=== PATIENT | male | born 1980 | race Caucasian/White ===

== ENCOUNTER 2019-05-09 01:21 | Emergency (ER) | payer SELFPAY ==
[2019-05-09 01:22] VITALS: BP 141/92; PULSE 88; RESP 18; TEMP 36.5; O2SAT 98; BMI 20.5
--- NOTE | 2019-05-09 01:39 | ED.VIS.URI ---
History of Present Illness Chief Complaint: Sore Throat Informant: Patient Onset: Days - 7 Context: Gradual Onset Timing: Continuous Worsened by: Swallowing Associated Symptoms: Nasal Congestion, Headache, Nausea Narrative: Patient is a 39-year-old male with no significant past medical history presenting with a sore throat. He states he feels of the lymph nodes in his throat are very sore and it hurts to swallow. He notes a week ago he had a flulike illness with fever and chills. He states after 3 days the fever and lightheadedness and improved however he is continued to have his throat symptoms. He is also had intermittent ringing in his ears. Patient is especially concerned because he has to drive his mother up to [place] tomorrow for an appointment. He states he is having a hard time swallowing because of the pain and it even hurts to swallow his own spit. He denies any other symptoms or complaints at this time. Past Medical History - Allergies and Home Meds Allergies/Adverse Reactions: Allergies No Known Allergies Allergy (Verified 05/09/19 01:24) Primary Care Physician: Shekhar Smith DO [Primary Care Provider] - Past Medical History: None Surgical History: noncontributory Smoking Status: Current every day smoker Review of Systems General: Reports: Chills, Fever, Malaise. Denies: Sweats Eyes: Denies: Visual changes - bilaterally, Diplopia ENT: Reports: Sore throat, - - Bilateral ear ringing. Denies: Rhinorrhea Cardiovascular: Denies: Chest pain, Palpitations Respiratory: Denies: Dyspnea, Cough, Dyspnea on exertion Gastrointestinal: Reports: Nausea. Denies: Abdominal pain, Vomiting, Diarrhea, Melena, Hematochezia Genitourinary: Denies: Dysuria, Hematuria, Frequency Musculoskeletal: Denies: Back pain, Extremity Pain Skin: Denies: Rash, Wounds Neurological: Denies: Headache, Weakness, Numbness Physical Exam Vital Signs/Narrative: Vital Signs Temp Pulse Resp BP Pulse Ox 05/09/19 01:22 97.7 F L 88 18 141/92 H 98 Inital Vital Signs reviewed: Yes General: Well nourished, Well developed Head: Normocephalic, Atraumatic Eyes: Perrl, EOMI Ears: Normal external canal, TM's clear Nose: Normal Inspection, No Rhinorrhea. Negative for: Swollen Turbinates Mouth/Throat: Posterior Oropharyngeal Erythema Tonsils: Right Tonsilar Erythema, Left Tonsilar Erythema. Negative for: Right Tonsilar Exudates, Left Tonsilar Exudates, Right Tonsilar Swelling, Left Tonsilar Swelling Neck: Supple, No Meningismus, Anterior Lymphadenopathy Cardiovascular: Regular rate, Regular rhythm, No murmurs Respiratory: No distress, CTA bilaterally, Chest nontender Abdomen: Soft, Nontender, Nondistended, Normal bowel sounds Back: Nontender, Normal Inspection Extremities: Nontender, No edema Skin: Normal color, No rash Neurological: Alert, Oriented x3, Cranial nerves II-XII grossly intact, Normal Strength, Normal Sensation Psychological: Normal affect Diagnostic/Tx/Re-eval - Medical Decision Making Patient is evaluated sore throat. Likely is a viral pharyngitis. He appears nontoxic in no acute distress. His vital signs are normal. He is given a one-time dose of Decadron to help with his symptoms. After 24 hours he will resume taking ibuprofen for pain. He is counseled on the typical course of viral URI. Patient is counseled on signs and symptoms requiring return to the emergency room. Patient verbalizes agreement and understand this plan. Patient discharged home in stable and improved condition. ED Disposition - Plan for ED Patient: Disposition: Home or Assisted Living Diagnosis: Viral syndrome, Pharyngitis Instructions: PHARYNGITIS, Viral Referrals: Shekhar Smith DO [Primary Care Provider] - Additional Instructions: Your lymph nodes in your neck are likely swollen from a viral illness. They need time to go down. They should improve within 2 to 3 weeks. The steroid you are given today should help with your symptoms. Please follow-up with a primary care doctor as needed. Return emergency room with any worsening symptoms.
[2019-05-09] MEDS: dexAMETHasone 4 MG Tablet 10 MG PO (01:57)
== END 2019-05-09 02:02 | disposition home or self-care (01) ==
LOC: ED 02:02
PROVIDERS: Emergency Provider Emergency Medicine; PCP Family Medicine
DX: J02.8 Acute pharyngitis due to other specified organisms (principal); F17.200 Nicotine dependence, unspecified, uncomplicated
CPT/HCPCS: 99283

== ENCOUNTER → 2020-01-26 17:35 | Outpatient (CLI) | payer MEDICAID, SELFPAY | PROVIDERS: PCP Family Medicine; Referring Provider Family Medicine; Visit Provider Family Medicine | DX: J02.9 Acute pharyngitis, unspecified (principal) | CPT/HCPCS: 87635; C9803; U0003 ==

== ENCOUNTER 2021-08-26 18:56 | Emergency (ER) | payer MEDICAID, SELFPAY ==
[2021-08-26 18:57] VITALS: BP 115/95; PULSE 64; RESP 18; TEMP 36.4; O2SAT 100
--- NOTE | 2021-08-26 19:22 | CT_ITS ---
EXAM: CT ABDOMEN AND PELVIS WITHOUT INTRAVENOUS CONTRAST CLINICAL INDICATION: Pain TECHNIQUE: Helically acquired images were obtained of the abdomen and pelvis without intravenous contrast. This CT exam was performed using one or more of the following dose reduction techniques: automated exposure control, adjustment of the mA and/or kV according to patient size, and/or use of iterative reconstruction technique. This report was created using [employer] report generation technology. RADIATION DOSE: CTDIvol = 6.04 mGy, DLP = 361.13 mGy-cm COMPARISON: None. FINDINGS: LOWER THORAX: Unremarkable. Lung bases are clear. No cardiomegaly. No significant pericardial effusion. ABDOMEN: LIVER: Unremarkable. Homogeneous. GALLBLADDER AND BILE DUCTS: Unremarkable. No calcified gallstones. No gallbladder distention or wall edema. No intra- or extrahepatic biliary ductal dilation. PANCREAS: Unremarkable. No focal cystic mass. SPLEEN: Unremarkable. Normal size without focal cystic or solid mass. ADRENALS: Unremarkable. No nodules. KIDNEYS AND URETERS: Punctate 2 mm distal right ureteral calculus on image 148 series 2. Mild right hydronephrosis. Mild right perinephric stranding. Punctate bilateral renal calculi are identified with cortical scarring the inferior right kidney. The right collecting system appears be partially duplicated. STOMACH AND BOWEL: Unremarkable. No stomach or bowel distention. No focal inflammatory change. PELVIS: APPENDIX: No evidence of acute appendicitis. BLADDER: Unremarkable. REPRODUCTIVE: Unremarkable as visualized. No mass. ABDOMEN and PELVIS: INTRAPERITONEAL SPACE: Unremarkable. No ascites or other fluid collection. No free air. BONES/JOINTS: Unremarkable. No suspicious lytic or blastic abnormality. SOFT TISSUES: Unremarkable. No discrete abdominal or pelvic wall hernia. VASCULATURE: Unremarkable. Abdominal aorta is non-dilated. LYMPH NODES: Unremarkable. No enlarged lymph nodes. CT/Abdomen/Pelvis without Cont IMPRESSION: 1. Punctate 2 mm distal right ureteral calculus on image 148 series 2. Mild right hydronephrosis. 2. 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 Electronically Signed: Vic Baires MD (Brooks) at 19:51 EDT Reading Location ID and State: [facility] / [place] , Service support ,
--- NOTE | 2021-08-26 19:23 | EDS_ITS ---
HPI HPI - GI History of Present Illness Chief Complaint: Flank Pain Detail of Chief Complaint: Right flank pain Informant: patient Abdominal Pain/Flank Pain Onset: Today Context: Sudden Onset Timing: Continuous Quality: Stabbing Location: Right Flank Current Severity: Moderate Maximum Severity: Severe Worsened by: Nothing Relieved by: Nothing Nausea/Vomiting/Emesis GI Symptom: Positive for Nausea; Negative for Vomiting Onset: Today Severity: Mild Diarrhea/Melena/Hematochezia GI Symptom: Negative for Diarrhea, Melena and Hematochezia Onset: Today Associated Symptoms Associated Symptoms: Negative for Dysuria, Frequency, Hematuria and Urgency Narrative Narrative: 41-year-old male right flank pain began this morning. Radiating to his right groin. Denies any trauma. No dysuria. No hematuria. He has never had a kidney stone his mom had kidney stones. He denies any fever. He has nausea without vomiting. Prior similar symptoms: No Recent Illness/Hospitalization: No PFSH PFSH Medical History no medical history no medical history Home Medications hydrocodone-acetaminophen 1 tab PO Q4H PRN 3 Days #12 tab 08/26/21 [Rx Last Taken Unknown] Allergy/AdvReac Type Severity Reaction Status Date / Time No Known Allergies Allergy Verified 08/26/21 18:59 Social History Smoking Status: Current every day smoker tobacco type: cigarettes ROS ROS ED ROS Narrative Right flank pain and nausea. Review of Systems ROS Unobtainable: Denies due to encephalopathy Constitutional Constitutional ED: Denies fever(s) ENT ENT ED: Denies ear pain Cardiovascular Cardiovascular: Denies chest pain Respiratory/Chest Respiratory/Chest: Denies cough or dyspnea Gastrointestinal Gastrointestinal: Reports abdominal pain and nausea; Denies constipation, diarrhea, melena or vomiting Genitourinary Genitourinary ED: Denies dysuria or hematuria Musculoskeletal Musculoskeletal: Reports back pain; Denies myalgias Integumentary Denies rash Neurologic Neurologic: Denies headache(s) Psychiatric Psychiatric: Denies depression Endocrine Endocrinology: Denies polyuria Hematologic/Lymphatic Hematologic/Lymphatic: Denies easy bruising Allergic/Immunologic Allergic/Immunologic ED: Denies urticaria EXAM Physical Exam Narrative Exam Narrative: Middle aged male lying in bed holding his right flank. Complaining of pain. Vital signs are stable afebrile. He does not look septic or toxic. H EENT exam unremarkable. Neck nontender. Lungs clear to auscultation. Heart regular rhythm rate about 65. No murmur. Abdomen soft nontender normal bowel sounds no peritoneal signs. He has reproducible right flank tenderness. Moving all 4 extremities. Neurologically is awake and alert. No focal motor deficits. Const Vital Signs: 08/26/21 18:57 Temperature 97.6 F L Temperature Source Temporal Pulse Rate 64 Respiratory Rate 18 Blood Pressure 115/95 H Blood Pressure Mean 101 Pulse Ox 100 Oxygen Delivery Method Room Air Positive well nourished and well developed; Negative for obese, cachectic, contractures or unkempt General Appearance ED: well developed; Negative for unkempt, cachectic, contractures, NAD or pallor Nutritional Appearance: Negative for cachectic or obese HEENT Reports moist mucous membranes; Denies dry mucous membranes normocephalic and atraumatic; Negative for trauma or tenderness Mouth ED: No dry mucous membranes Mouth: No dry mucous membranes Eyes PERRL and EOMs intact bilaterally Neck no lymphadenopathy, supple and no JVD General: Negative for tenderness Resp normal respiratory effort and clear to auscultation bilaterally Auscultation: Negative for rales, rhonchi or wheezes Cardio regular rate, regular rhythm, S1 normal heart sound, S2 normal heart sound and no murmurs GI non-tender, non-distended and no masses Inspection: Negative for abdominal distention Auscultation: normoactive bowel sounds; Negative for hyperactive bowel sounds or hypoactive bowel sounds Palpation: soft; Negative for tender, guarding, rigid or rebound tenderness present Back/Spine Negative for no CVA tenderness General Back: CVA tenderness Cervical Spine: Negative for cervical spine tenderness Thoracic Spine / Upper Back: Negative for thoracic spinal tenderness Lumbar Spine / Lower Back: Negative for lumbar spinal tenderness Extremity full ROM General Extremety ED: Negative for edema or tenderness General Extremity: Negative for edema Neuro moves all extremities Sensorium / Orientation: alert, oriented to person, oriented to place and oriented to time; Negative for orientation impaired, confused, lethargic or stuporous Motor Exam: strength 5/5 throughout Psych mental status grossly normal and thought process normal Appearance: Negative for unkempt Attitude: No agitated Mood & Affect: Negative for depressed or tearful Skin no wounds General Skin Exam: Negative for jaundice or pallor Lesions: no lesions Rashes: no rashes MDM MDM MDM Narrative Medical decision making narrative: 41-year-old male with right flank pain. Concern for kidney stone. CAT scan and labs being obtained. Treated with Dilaudid, Toradol and Zofran. Repeat exam at 8:06 PM patient improve post the IV medications. Patient doing well at 9:08 PM. To be discharged home with Eldora for pain. Lab Data Attestation: I reviewed the patient's lab results. Lab results narrative: CBC normal. White count 8. H&H 14 and 43. Platelets 274. Electrolytes unremarkable gap at 9 normal BUN and creatinine. Glucose 109. CAT scan showed a right-sided 2 mm distal right ureteral stone. There is also incidental finding of partial duplication of the right collecting system per the radiologist. Urinalysis is negative. No white cells. No blood. No nitrites. Labs: Laboratory Results - last 24 hr 08/26/21 08/26/21 08/26/21 19:15 19:15 20:00 WBC 8.8 RBC 4.60 Hgb 14.4 Hct 43.2 MCV 93.9 MCH 31.3 MCHC 33.3 RDW Std Deviation 42.9 RDW Coeff of Constantino 12.5 Plt Count 274 MPV 9.7 Immature Gran % (Auto) 0.600 Neut % (Auto) 65.2 Lymph % (Auto) 24.1 [place] % (Auto) 7.7 Eos % (Auto) 1.6 Baso % (Auto) 0.8 Absolute Neuts (auto) 5.7 Absolute Lymphs (auto) 2.11 Nucleated RBC % 0 Sodium 141 Potassium 3.6 Chloride 107 Carbon Dioxide 25.0 Anion Gap 9 BUN 15 Creatinine 0.96 Estim Creat Clear Calc 89.12 Est GFR (MDRD) Af Amer 109 Est GFR (MDRD) Non-Af 90 BUN/Creatinine Ratio 15.6 Glucose 109 H Calcium 9.5 Urine Color Yellow Urine Clarity Sl. Cloudy Urine pH 8.0 Ur Specific [place] 1.010 Urine Protein 30 H Urine Glucose (UA) Normal Urine Ketones 50 H Urine Occult Blood Negative Urine Nitrite Negative Urine Bilirubin Negative Urine Urobilinogen Normal Ur Leukocyte Esterase Negative Urine RBC 0 SEEN Urine WBC 0 SEEN Ur Squamous Epith Cells 0 SEEN Amorphous Sediment 1+ Urine Bacteria 0 SEEN Urine Mucus 0 SEEN Radiography Diagnostic Testing: Clinical Impression(s) from Imaging Studies Abdomen/Pelvis CT 08/26/21 19:22 IMPRESSION: 1. Punctate 2 mm distal right ureteral calculus on image 148 series 2. Mild right hydronephrosis. 2. 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 Electronically Signed: Vic Baires MD (Brooks) at 19:51 EDT Reading Location ID and State: [facility] / [place] , Service support , Discharge Plan Triage Chief Complaint: Flank Pain Other Complaint: General Illness ED Provider: Albert Fregoso Dx/Rx/DC Orders Clinical Impression: Kidney stone on right side, Acute flank pain Instructions: ED Kidney Stone w/ Colic Prescriptions: New hydrocodone-acetaminophen 5-325 mg tablet 1 tab PO Q4H PRN (Reason: pain) 3 Days Qty: 12 RF: 0 Primary Care Provider: Helio Magana Referrals: Milton Corona MD [STAFF PHYSICIAN] - 3-5 Days if not improving Helio Magana DO [Primary Care Provider] - Activity Restrictions/Additional Instructions: You have a 2 mm stone just above your bladder on the right. This should pass and not get stuck. Motrin for pain and Eldora as needed. Plenty of fluids. Follow-up with the urologist Dr. Alexx Corona if not improving. Disposition Disposition: Home, Self Care
[2021-08-26] MEDS: HYDROmorphone 1 MG/ML Syringe IV (19:26)
[2021-08-26] MEDS: Ketorolac 30 MG/ML Syringe IV (19:26)
[2021-08-26] MEDS: Ondansetron 4 MG/2 ML Vial IV (19:26)
[2021-08-26 19:45] LABS: Absolute Lymphocyte Count 2.11 X10^3/uL (0.83-4.51); Absolute Neutrophil Count 5.7 X10^3/uL (2.0-7.7); Basophil# 0.07 X10^3/uL; Basophil% 0.8 % (0-1); Eosinophil# 0.14 X10^3/uL; Eosinophils% 1.6 % (0-5); Hematocrit 43.2 % (40-54); Hemoglobin 14.4 g/dL (13.0-16.5); Lymphocyte # 2.11 X10^3/ul (0.83-4.51); Lymphocyte % 24.1 % (19-41); Mean Corp Hgb Conc 33.3 g/dL (32-36); Mean Corpuscular Hgb 31.3 pg (27.0-32.0); Mean Corpuscular Volume 93.9 fL (80-94); Mean Platelet Vol. 9.7 fl (6.2-12.0); Monocyte# 0.67 X10^3/uL; Monocyte% 7.7 % (0-10); NRBC Flagged by Analyzer 0 % (0-5); Neutrophil # 5.71 X10^3/uL (2.7-7.7); Neutrophil % 65.2 % (47-70); Platelet Count 274 K/mm3 (150-450); RBC Distribution Width CV 12.5 % (11.6-14.6); RBC Distribution Width SD 42.9 fl (35.1-43.9); White Blood Count 8.8 K/mm3 (4.4-11.0)
[2021-08-26 19:54] LABS: Anion Gap 9 (5-15); BUN 15 mg/dL (7-18); BUN/Creat Ratio 15.6 RATIO (10-20); Calcium,Total 9.5 mg/dL (8.5-10.1); Chloride 107 mmol/L (98-107); Creatinine, Serum 0.96 mg/dL (0.70-1.30); EST Glomerular Filtration Rate 90 mL/min (>60); Est Glom Filt Rate - Afr Amer 109 mL/min (>60); Estimated Creatinine Clearance 89.12 ml/min; Glucose 109 mg/dL (74-106); Potassium 3.6 mmol/L (3.5-5.1); Sodium Level 141 mmol/L (136-145)
[2021-08-26 20:06] LABS: Bacteria 0 SEEN /hpf (None Seen); Mucous, Urine 0 SEEN /hpf (<or=2+); Red Blood Cells-Urine 0 SEEN /hpf (0-5); Squamous Epithelial Cells - UA 0 SEEN /hpf (0-5); White Blood Cells 0 SEEN /hpf (0-5)
[2021-08-26 20:22] LABS: Color, Urine Yellow (Yellow); Glucose, Dipstick Normal (Normal); Ketone-Dipstick 50 mg/dl (Negative); Leukocyte Esterase-Dipstick Negative /ul (Negative); Nitrite-Dipstick Negative (Negative); Occult Blood-Urine Negative /ul (Negative); Protein-Dipstick 30 mg/dl (Negative); Urine Bilirubin Dipstick Negative (Negative); Urine Clarity Sl. Cloudy (Clear); Urine Urobilinogen Normal (Normal)
[2021-08-26 20:36] LABS: Amorphous Sediment 1+
[2021-08-26 21:39] VITALS: BP 132/71; PULSE 69; RESP 16
== END 2021-08-26 21:40 | disposition home or self-care (01) ==
PROVIDERS: Emergency Provider Emergency Medicine; PCP Student in an Organized Health Care Education/Training Program; Visit Provider Emergency Medicine
DX: N13.2 Hydronephrosis with renal and ureteral calculous obstruction (principal); F17.210 Nicotine dependence, cigarettes, uncomplicated
CPT/HCPCS: 74176; 80048; 81001; 85025; 96374; 96375; 99283; A4216; J2405

== ENCOUNTER 2022-02-11 11:16 | Emergency (ER) | payer MEDICAID, SELFPAY ==
[2022-02-11 11:16] VITALS: BP 114/71; PULSE 73; RESP 14; TEMP 36.8; O2SAT 99; BMI 20.2
--- NOTE | 2022-02-11 11:30 | RAD_ITS ---
STUDY: X-RAY CHEST REASON FOR EXAM: Male, 41 years old. cough TECHNIQUE: PA or AP COMPARISON: 06/13/2014 FINDINGS: The lungs are clear and expanded. There is no demonstrated pleural abnormality. Normal size heart. Normal mediastinum and grupo. Normal visualized pulmonary arteries. Normal visualized aortic arch and descending thoracic aorta. Normal visualized thoracic spine. Normal visualized ribs, clavicles, and shoulders. There is no demonstrated abnormality of the visualized soft tissue structures of the upper abdomen. Stable exam. RAD/Chest 1 View (Portable) IMPRESSION: Normal x-ray examination of the chest. Electronically Signed: John Haile MD, USMAN at 11:46 EDT ,
--- NOTE | 2022-02-11 13:23 | ED.RN ---
pt did not wait to be seen. pt left prior to dr seeing pt
== END 2022-02-11 13:20 | disposition left against medical advice (07) ==
PROVIDERS: PCP Family Medicine
DX: R05.9 Cough, unspecified (principal); Z53.21 Procedure and treatment not carried out due to patient leaving prior to being seen by health care provider
CPT/HCPCS: 71045; 99281

== ENCOUNTER 2023-08-01 15:06 | Emergency (ER) | payer MEDICAID, SELFPAY ==
[2023-08-01 15:06] VITALS: BP 100/69; PULSE 81; RESP 18; TEMP 36.2; O2SAT 100
--- NOTE | 2023-08-01 15:11 | RAD_ITS ---
EXAM: XR RIGHT SHOULDER COMPLETE, 2 OR MORE VIEWS CLINICAL INDICATION: Truma TECHNIQUE: Two or more views of the right shoulder. COMPARISON: No relevant prior studies available. FINDINGS: BONES/JOINTS: Acute mid right comminuted clavicle fracture. Distal fracture fragment is displaced inferiorly. Preservation of the joint space. No sclerotic or destructive changes observed. SOFT TISSUES: Unremarkable. No soft tissue swelling or gas. No radiopaque foreign body. RAD/Shoulder min 2 Views IMPRESSION: Acute mid right comminuted clavicle fracture. Distal fracture fragment is displaced inferiorly. Electronically Signed: Abelino Lopez MD at 15:36 EDT ,
--- NOTE | 2023-08-01 15:20 | RAD_ITS ---
EXAM: XR RIGHT CLAVICLE COMPLETE, 2 OR MORE VIEWS CLINICAL INDICATION: Trauma TECHNIQUE: Frontal and lordotic views of the right clavicle. COMPARISON: No relevant prior studies available. FINDINGS: BONES/JOINTS: Acute mid right comminuted clavicle fracture. Distal fracture fragment is displaced inferiorly. Preservation of the joint space. No sclerotic or destructive changes observed. SOFT TISSUES: Unremarkable. No soft tissue swelling or gas. No radiopaque foreign body. RAD/Clavicle IMPRESSION: Acute mid right comminuted clavicle fracture. Distal fracture fragment is displaced inferiorly. Electronically Signed: Abelino Lopez MD at 15:43 EDT ,
[2023-08-01 15:35] VITALS: BMI 19.8
--- NOTE | 2023-08-01 15:46 | CT_ITS ---
STUDY: CT Spine Cervical W/O Contrast Injection 08/01/2023 4:58 PM REASON FOR EXAM: Male, 43 years old. NECK PAIN neck injury HISTORY: NECK PAIN neck injury TECHNIQUE: High resolution transaxial imaging was performed without intravenous administration of contrast material. Sagittal and coronal images were reconstructed. Individualized dose optimization techniques were used for this CT. COMPARISON: None FINDINGS: Normal craniovertebral junction. Normal anterior atlantoaxial articulation. Normal odontoid process. Normal cervical lordosis. Normal vertebral bodies and posterior osseous elements. C2-3: Normal endplates. Normal disc height and morphology. Normal central canal and intervertebral neuroforamina. C3-4: Normal endplates. Normal disc height and morphology. Normal central canal and intervertebral neuroforamina. C4-5: Normal endplates. Normal disc height and morphology. Normal central canal and intervertebral neuroforamina. C5-6: Loss of intervertebral disc height. There is endplate spondylosis of the vertebral body. Normal central canal and intervertebral neuroforamina. There is bilateral facet arthropathy. C6-7: Normal endplates. Normal disc height and morphology. Normal central canal and intervertebral neuroforamina. C7-T1: Normal endplates. Normal disc height and morphology. Normal central canal and intervertebral neuroforamina. Normal visualized soft tissue structures. CT/Spine Cervical without Contras IMPRESSION: (NOT LISTED IN ORDER OF SIGNIFICANCE) There are no acute findings. Electronically Signed: Abelino Lopez MD at 16:59 EDT ,
--- NOTE | 2023-08-01 15:46 | CT_ITS ---
STUDY: CT Maxillofacial W/O Contrast Injection 08/01/2023 5:21 PM REASON FOR EXAM: Male, 43 years old. facial injury TECHNIQUE: The patient was scanned in a multi detector CT scanner. Sagittal and coronal images were reconstructed. Individualized dose optimization techniques were used for this CT. COMPARISON: None FINDINGS: Normal soft tissue structures. Normal orbital uriarte and orbital contents. Normal anterior nasal spine. Normal nasal bones. Normal facial bones. There is no demonstrated fracture. There is mucoperiosteal inflammatory disease of the paranasal sinuses consistent with mild chronic sinusitis. CT/Sinus/Facial Bone IMPRESSION: (NOT LISTED IN ORDER OF SIGNIFICANCE) There are no acute findings. Electronically Signed: Abelino Lopez MD at 17:23 EDT ,
--- NOTE | 2023-08-01 15:46 | CT_ITS ---
EXAM: CT HEAD WITHOUT INTRAVENOUS CONTRAST CLINICAL INDICATION: head injury TECHNIQUE: Multiple axial images were obtained of the head without intravenous contrast. This CT exam was performed using one or more of the following dose reduction techniques: automated exposure control, adjustment of the mA and/or kV according to patient size, and/or use of iterative reconstruction technique. RADIATION DOSE: CTDIvol = 44.99 mGy, DLP = 812.98 mGy-cm COMPARISON: No relevant prior studies available. FINDINGS: BRAIN AND EXTRA-AXIAL SPACES: Unremarkable. No intra- or extra-axial hemorrhage. No evidence of acute infarct. No intracranial mass or mass effect. There is preservation of the [place]/white matter interface. Posterior fossa structures are unremarkable. Ventricles are appropriate for age. No hydrocephalus. Basal cisterns are patent. BONES/JOINTS: Unremarkable. No discrete lytic or blastic abnormalities. SINUSES: Unremarkable as visualized. Clear. MASTOID AIR CELLS: Unremarkable. Clear. ORBITS: Visualized globes, extraocular muscles, optic nerves and retrobulbar fat appear unremarkable. CT/Brain/Head without Contrast IMPRESSION: Negative head/brain CT without intravenous contrast. Electronically Signed: Abelino Lopez MD at 17:09 EDT ,
[2023-08-01] MEDS: Ondansetron 4 MG/2 ML Vial IV (15:58)
[2023-08-01] MEDS: Morphine 4 MG/ML Syringe IV (15:58)
[2023-08-01 16:05] LABS: Absolute Lymphocyte Count 1.22 X10^3/uL (0.83-4.51); Absolute Neutrophil Count 7.8 X10^3/uL (2.0-7.7); Basophil# 0.05 X10^3/uL; Basophil% 0.5 % (0-1); Eosinophil# 0.13 X10^3/uL; Eosinophils% 1.3 % (0-5); Hematocrit 43.1 % (40-54); Hemoglobin 14.6 g/dL (13.0-16.5); Lymphocyte # 1.22 X10^3/ul (0.83-4.51); Lymphocyte % 12.5 % (19-41); Mean Corp Hgb Conc 33.9 g/dL (32-36); Mean Corpuscular Hgb 32.4 pg (27.0-32.0); Mean Corpuscular Volume 95.8 fL (80-94); Mean Platelet Vol. 9.2 fl (6.2-12.0); Monocyte# 0.53 X10^3/uL; Monocyte% 5.4 % (0-10); NRBC Flagged by Analyzer 0 % (0-5); Neutrophil # 7.78 X10^3/uL (2.7-7.7); Neutrophil % 79.7 % (47-70); Platelet Count 263 K/mm3 (150-450); RBC Distribution Width CV 12.5 % (11.6-14.6); RBC Distribution Width SD 44.1 fl (35.1-43.9); White Blood Count 9.8 K/mm3 (4.4-11.0)
[2023-08-01 16:18] LABS: Anion Gap 9 (5-15); BUN 12 mg/dL (7-18); BUN/Creat Ratio 14.2 RATIO (10-20); Calcium,Total 9.3 mg/dL (8.5-10.1); Chloride 105 mmol/L (98-107); Creatinine, Serum 0.85 mg/dL (0.70-1.30); EST Glomerular Filtration Rate 104 mL/min (>60); Est Glom Filt Rate - Afr Amer 126 mL/min (>60); Estimated Creatinine Clearance 97.33 ml/min; Glucose 98 mg/dL (74-106); Potassium 4.2 mmol/L (3.5-5.1); Sodium Level 141 mmol/L (136-145)
[2023-08-01 17:06] VITALS: BP 106/68; PULSE 74; RESP 16; TEMP 36; O2SAT 97
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
[2023-08-01 17:56] VITALS: BP 111/74; PULSE 72; RESP 18; TEMP 37; O2SAT 98
== END 2023-08-01 17:57 | disposition home or self-care (01) ==
PROVIDERS: Nurse Practitioner; Emergency Provider Emergency Medicine; PCP Family Medicine; Visit Provider Emergency Medicine
DX: S06.0X0A Concussion without loss of consciousness, initial encounter (principal); S40.811A Abrasion of right upper arm, initial encounter; S42.021A Displaced fracture of shaft of right clavicle, initial encounter for closed fracture; F17.210 Nicotine dependence, cigarettes, uncomplicated; V19.9XXA Pedal cyclist (driver) (passenger) injured in unspecified traffic accident, initial encounter
CPT/HCPCS: 70450; 70486; 72125; 73000; 73030; 80048; 85025; 96374; 96375; 99282; A4216; J2405

== ENCOUNTER 2023-08-10 05:55 | Day surgery (SDC) | payer MEDICAID, SELFPAY ==
[2023-08-10] VITALS (10 sets, daily range): BP systolic 111–141; BP diastolic 72–87; PULSE 55–69; RESP 16; TEMP 36.1–37.2; O2SAT 92–100; BMI 19.9
--- NOTE | 2023-08-10 06:20 | EKG12_ITS ---
Test Reason : PREOP Blood Pressure : / mmHG Vent. Rate : 064 BPM Atrial Rate : 064 BPM P-R Int : 146 ms QRS Dur : 088 ms QT Int : 394 ms P-R-T Axes : 027 059 055 degrees QTc Int : 406 ms Normal sinus rhythm Normal ECG When compared with ECG of 13-JUN-2014 12:14, No significant change was found Confirmed by LOYD COVARRUBIAS, KOURTNEY ([id number]), editorial assistant AURORA PORTER ([id number]) on 08/16/2023 2:06:02 PM Referred By: Jeremiah Moran Confirmed By:KOURTNEY HARP MD
[2023-08-10] MEDS: Lactated Ringers 1,000 ML 15 ML IV (06:42)
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
[2023-08-10] MEDS: Cefazolin 2 GM in 0.9% Normal Saline (100mL Bag) 100 ML IV (07:30)
--- NOTE | 2023-08-10 07:45 | RAD_ITS ---
STUDY: X-RAY - RIGHT CLAVICLE REASON FOR EXAM: Male, 43 years old. FX TECHNIQUE: 1 view(s) of the clavicle. COMPARISON: Comparison is made with prior study of August 01, 2023. FINDINGS: Status post open reduction and internal fixation of the right midclavicular fracture. There is good alignment. RAD/Clavicle IMPRESSION: Status post open reduction and internal fixation of the right midclavicular fracture. There is good alignment. Electronically Signed: Chris Saba MD at 12:53 EDT ,
--- NOTE | 2023-08-10 08:52 | OP.PCM_ITS ---
Problems Associated Problem List Diagnoses (1) Right clavicle fracture: Report of Operation Date of Procedure: 08/10/23 Pre-Operative Diagnosis: Right clavicle fracture Post-Operative Diagnosis: Right clavicle fracture Surgery/Procedure Performed:: Right clavicle open reduction internal fixation Surgeon: Jeremiah Moran Type of Anesthesia: Block,Regional and General Anesthesiologist: Pipe Agosto Estimated Blood Loss (mL): 25 Description of Procedure: Patient brought to the operating theater. Placed supine on the beachchair position in bed. General anesthesia induced. 2 g IV Ancef administered prior to the start of the procedure. SCDs on the legs all bony prominences padded. Patient sat up at a 45 degree angle. Arm hutchins use of the patient's right side. Upper extremity prepped and draped in usual sterile fashion allowing over 3 minutes drying time prior to draping. Preoperative timeout performed, confirm site patient and the surgery. Made a standard longitudinal incision over the superior aspect of the clavicle. Carried the dissection down through skin and subcutaneous tissue achieved meticulous hemostasis. Incised the platysma fascia layer in line with the skin incision. Carried dissection down onto the superior aspect of the clavicle. Identified the fracture site. There is a small amount of comminution that had very minimal soft tissue attachments that had to be discarded. I used bone- holding forceps with direct manipulation to achieve a preliminary reduction. I then selected a Synthes 2.7mm VA precontoured superior right side clavicle plate. I placed the plate superiorly on the clavicle and again used the clamps to secure the plate down to the superior aspect of the bone. I took IntraOp radiographs to ensure appropriate plate placement. I used 2 cortical screws on both sides of the fracture to secure the plate down to the bone. I then inserte d also 3 fully threaded locking screws on both sides for a total of 5 screws on both sides good reduction and solid fixation and I took intraoperative radiographs to ensure appropriate screw length and reduction and plate placement. I saved these onto the system. Thorough irrigation was then performed. Fascial layer closed with running #1 Vicryl suture subcutaneous tissue with 2-0 Vicryl suture and skin with 3-0 Monocryl. Skin cleaned with wet and dry dressing followed by application of Steri-Strips and silver Mepilex border dressing with a sling for the upper extremity. Patient woken up from the general anesthetic transferred off the operating table taken to postanesthetic care unit in stable condition. All sponge needle counts were correct complications. Plan to the patient sling today upper extremity gentle pendulum exercises no heavy lifting over 1 pound. Follow-up in the office in 2 days time. cpt 65534? Grafts/Implants Used: synthes 2.7mm VA clavicle plate Complications none Admit VTE Documentation VTE Present on Admission: No VTE Mechan Device Prophylaxis: SCD's VTE Pharm Prophylaxis ordered?: No Reason prophylaxis not ordered:: Treatment Not Indicated Procedures Musculoskeletal 20xxx-29xxx: Other Procedure See Report
--- NOTE | 2023-08-10 08:59 | DCINST_ITS ---
Discharge Instructions Diet Discharge Diet: No restrictions Activity May shower in (days): 1 Lifting Restrictions: no lifting over 1 pound Additional Activity Instructions:: ok to remove sling when resting, ok for gentle hand wrist elbow ROM Dressing / Incision Call your doctor if your incision/area has: Continuous Slow Oozing, Sudden Increased Bleeding, Increased Pain/ Swelling, Increased Redness, Foul Smelling Discharge and Swelling at the incision site Change Dressing in: leave in place till F/U Cleanse incision/area with: Do not get Incision Wet Follow Up Care Please Follow Up With: Jeremiah Moran MD When: 2 days Test Results: Test results from this visit will be discussed in further detail at your follow- up appointment, if applicable. Discharge Plan Admission Attending Provider: Jeremiah Moran Primary Care Provider: Henrique Mark Discharge Orders/Prescriptions Prescriptions: New oxycodone-acetaminophen [Percocet] 5-325 mg tablet 1 tab PO Q4H MDD 6 PRN (Reason: pain) 5 Days Qty: 20 0RF No Action oxycodone-acetaminophen [Percocet] 5-325 mg tablet 1 tab PO Q8H PRN (Reason: pain) 3 Days Qty: 12 0RF ondansetron 4 mg tablet,disintegrating 4 mg PO Q8H PRN PRN (Reason: Nausea) Qty: 10 0RF Hlevixcebie-Fnzoi-BRJ Complex [id number] mg tablet 1 tab PO DAILY Referrals / Follow Up: Henrique Mark MD [Primary Care Provider] - Jeremiah Moran MD [Med Staff - Active Staff] - Disposition Disposition (needs filled in before D/C Order can be placed): Home, Self Care
[2023-08-10] MEDS: Oxycodone/Apap 5/325 Tablet PO (10:40)
== END 2023-08-10 11:32 | disposition home or self-care (01) ==
LOC: SDC 05:55 → AC 05:56
PROVIDERS: PCP Family Medicine; Referring Provider Orthopaedic Surgery Sports Medicine; Visit Provider Orthopaedic Surgery Sports Medicine
PROC: (CPT 23515; principal; 2023-08-10 07:10)
DX: S42.021A Displaced fracture of shaft of right clavicle, initial encounter for closed fracture (principal); V18.0XXA Pedal cycle driver injured in noncollision transport accident in nontraffic accident, initial encounter; F17.210 Nicotine dependence, cigarettes, uncomplicated
CPT/HCPCS: 23515; 00450; 64415; 73000; 76000; 93005; C1713; J7120; J2405

== ENCOUNTER → 2024-02-09 | Outpatient (CLI) | payer MEDICAID, SELFPAY ==
[2024-02-09 15:02] LABS: Absolute Lymphocyte Count 1.21 X10^3/uL (0.83-4.51); Absolute Neutrophil Count 5.2 X10^3/uL (2.0-7.7); Basophil# 0.05 X10^3/uL; Basophil% 0.7 % (0-1); Eosinophil# 0.14 X10^3/uL; Hematocrit 45.7 % (40-54); Lymphocyte # 1.21 X10^3/ul (0.83-4.51); Lymphocyte % 17.1 % (19-41); Mean Corp Hgb Conc 32.8 g/dL (32-36); Mean Corpuscular Hgb 31.6 pg (27.0-32.0); Mean Corpuscular Volume 96.2 fL (80-94); Mean Platelet Vol. 9.8 fl (6.2-12.0); Monocyte# 0.46 X10^3/uL; Monocyte% 6.5 % (0-10); NRBC Flagged by Analyzer 0 % (0-5); Neutrophil % 73.3 % (47-70); Platelet Count 258 K/mm3 (150-450); RBC Distribution Width CV 12.8 % (11.6-14.6); RBC Distribution Width SD 45.7 fl (35.1-43.9); Red Blood Count 4.75 M/mm3 (4.6-6.2); White Blood Count 7.1 K/mm3 (4.4-11.0)
[2024-02-09 15:30] LABS: Erythrocyte Sedimentation Rate 2 mm/hr (0-20)
[2024-02-09 15:58] LABS: ALB/GLOB Ratio 1.2 RATIO (0.9-2.4); AST(SGOT) 22 U/L (15-37); Alanine Aminotransfer ALT/SGPT 33 U/L (16-61); Albumin, Serum 4.1 g/dL (3.2-5.0); Alkaline Phosphatase 89 U/L (45-117); Anion Gap 4 (5-15); BUN 15 mg/dL (7-18); BUN/Creat Ratio 17.8 RATIO (10-20); CRP < 2.90 mg/L (0.0-3.0); Calcium,Total 9.6 mg/dL (8.5-10.1); Chloride 106 mmol/L (98-107); Creatinine, Serum 0.84 mg/dL (0.70-1.30); EST Glomerular Filtration Rate 104 mL/min (>60); Est Glom Filt Rate - Afr Amer 126 mL/min (>60); Ferritin 175 ng/mL (26-388); Free T3 2.4 pg/mL (2.18-3.98); Globulin 3.5 g/dL (2.2-4.2); Glucose 78 mg/dL (74-106); LDH 168 U/L (87-241); PSA,Total - Annual Screen 1.21 ng/mL (0.00-4.00); Potassium 3.8 mmol/L (3.5-5.1); Protein, Total 7.6 g/dL (6.4-8.2); Sodium Level 138 mmol/L (136-145); T4 Free Direct 0.73 ng/dL (0.76-1.46); Thyroid Stim Hormone (TSH) 0.752 uIU/mL (0.358-3.740)
[2024-02-09 16:24] LABS: Hemoglobin A1c 5.2 % (3.8-5.6)
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
[2024-02-10 02:12] LABS: Vitamin B12 347 pg/mL (211-911)
[2024-02-15 11:10] LABS: ACCA 27 units (0-90); ALCA 7 units (0-60); AMCA 26 units (0-100); Albumin 4.2 g/dL (2.9-4.4); Alpha-1-Globulins 0.2 g/dL (0.0-0.4); Alpha-2-Globulins 0.6 g/dL (0.4-1.0); Cytoplasmic Ab (C-ANCA) <1:20 titer (Neg:<1:20); Endomysial Antibody IgA Negative (Negative); Gamma Globulin 0.8 g/dL (0.4-1.8); Immunoglobulin A 259 mg/dL (90-386); Immunoglobulin E 2051 IU/mL (6-495); Immunoglobulin G 938 mg/dL (603-1613); Immunoglobulin M 110 mg/dL (20-172); PROEL- TOTAL PROTEIN 6.9 g/dL (6.0-8.5); Perinuclear Ab (P-ANCA) <1:20 titer (Neg:<1:20); Vitamin B1, Thiamine 149.8 nmol/L (66.5-200.0); gASCA 4 units (0-50); t-Transglutaminase IgA <2 U/mL (0-3)
[2024-02-15 14:10] LABS: Anti-Centromere B Ab <0.2 AI (0.0-0.9); Anti-Chromatin <0.2 AI (0.0-0.9); Anti-Jo <0.2 AI (0.0-0.9); Anti-Scleroderma-70 AB <0.2 AI (0.0-0.9); Anti-dsDNA Ab 1 IU/mL (0-9); Beef 0.42 kU/L (Class I); Chocolate 0.16 kU/L (Class 0/I); Codfish 0.31 kU/L (Class 0/I); Corn 5.46 kU/L (Class IV); Egg, Whole 0.23 kU/L (Class 0/I); Milk (Cow) 1.03 kU/L (Class II); Mussels 4.17 kU/L (Class IV); Pork 0.31 kU/L (Class 0/I); RNP Ab 3.4 AI (0.0-0.9); SJOGREN'S Anti-SS-A test < 0.2 AI (0.0-0.9); SJOGREN'S Anti-SS-B test < 0.2 AI (0.0-0.9); Salmon 0.29 kU/L (Class 0/I); Shrimp 2.55 kU/L (Class III); Smith Ab <0.2 AI (0.0-0.9); Soybean 5.79 kU/L (Class IV); Tuna 0.22 kU/L (Class 0/I); Wheat 6.56 kU/L (Class IV)
== END | disposition home or self-care (01) ==
LOC: LAB 14:08
PROVIDERS: PCP Family Medicine
DX: K58.0 Irritable bowel syndrome with diarrhea (principal); Z12.5 Encounter for screening for malignant neoplasm of prostate
CPT/HCPCS: 84153; 36415; 80053; 82607; 82728; 82746; 82784; 82785; 83036; 83516; 83615; 84165; 84425; 84439; 84443; 84481; 85025; 85652; 86003; 86005; 86036; 86037; 86140; 86225; 86235; 86255; 86334; 86671; G0103

== ENCOUNTER → 2024-03-14 | Outpatient (CLI) | payer MEDICAID, SELFPAY ==
--- NOTE | 2024-03-14 08:49 | NM_ITS ---
CLINICAL: 44-year-old male with history of early satiety. SEMI SOLID PHASE 99m Tc SULFUR COLLOID GASTRIC EMPTYING STUDY COMPARISON: None available FINDINGS: The patient was administered 1.2 mCi of 99m Tc sulfur colloid mixed with oatmeal and consumed per os. Image acquisitions in the anterior-posterior projections were obtained for 60 minutes. There is prompt visualization of the stomach. There is no gastroesophageal reflux identified. Zero order, logarithmic kinetics are defined throughout the duration of the acquisitions. There is rapid-accelerated emptying of the gastric contents noted during 60 minutes of sequential imaging. The T ? raw data emptying was calculated to be 7.74 minutes, (Normal 12-56 minutes). NM/Gastric Emptying Study IMPRESSION: 1. There is accelerated solid phase gastric emptying compared to normal controls with demonstrated zero order-logarithmic kinetics throughout all components of the examination. (Niecy et al, J Nucl Med Tech 38: 186, 2010). Electronically Signed: Emerson Dunn DO at 12:48 EST ,
== END | disposition home or self-care (01) ==
LOC: NM 08:49
PROVIDERS: PCP Family Medicine
DX: R68.81 Early satiety (principal); K58.0 Irritable bowel syndrome with diarrhea
CPT/HCPCS: 78264; A9541

== ENCOUNTER 2024-03-15 12:59 | Day surgery (SDC) | payer MEDICAID, SELFPAY ==
[2024-03-15] VITALS (7 sets, daily range): BP systolic 92–110; BP diastolic 64–67; PULSE 62–69; RESP 16–18; TEMP 36.4–36.7; O2SAT 96–100; BMI 19.9
--- NOTE | 2024-03-15 13:14 | PCM.PRE.AN2 ---
ASA Classification* ASA Classification ASA Classification: 2 Assessment & Plan Anesthesia* Anesthesia Assessment Anesthesia Assessment: Discussed sedation and/or anesthesia options, risks, benefits, and alternatives with patient/parents/legal guardian/POA. Questions invited. The patient/parents/legal guardian/POA seems to understand and agrees to proceed with anesthesia plan. Reviewed the physical assessment, medical history, allergy history and patient home medications list prior to surgery/procedure/anesthetic and documented any changes. Performed airway and anesthesia risk assessments. Anesthesia Type Anesthesia Type: MAC Anesthesia Focused Assessment* Airway Assessment Mouth opens: >3 cm Mallampati Score: II Focused Labs Anesthesia Preop lab: CBC WBC 7.1 K/mm3 (4.4-11.0) 02/09/24 14:32 RBC 4.75 M/mm3 (4.6-6.2) 02/09/24 14:32 Hgb 15.0 g/dL (13.0-16.5) 02/09/24 14:32 Hct 45.7 % (40-54) 02/09/24 14:32 Plt Count 258 K/mm3 (150-450) 02/09/24 14:32 CHEMISTRY Potassium 3.8 mmol/L (3.5-5.1) 02/09/24 14:32 Sodium 138 mmol/L (136-145) 02/09/24 14:32 BUN 15 mg/dL (7-18) 02/09/24 14:32 Creatinine 0.84 mg/dL (0.70-1.30) 02/09/24 14:32 Glucose 78 mg/dL (74-106) 02/09/24 14:32 TSH 0.752 uIU/mL (0.358-3.740) 02/09/24 14:32 COAG Pre-Assessment Diagnosis/Proposed Procedure Planned Operative Procedure(s): COLONOSCOPY Anesthesia History Anesthesia History - touch up edger: Anesthesia History - touch up edger Hx Hospitalization No 03/09/24 15:32 Any Problems With Anesthesia No 03/09/24 15:32 Cholinesterase deficiency No 03/09/24 15:32 You/Your Family Experience No 03/09/24 15:32 fever (hyperthermia) with Relationship Recent Exposure to Contagious No 08/10/23 06:43 Disease Does patient have nerve No 03/09/24 15:32 stimulator Patient instructed to have device shut off --Does patient have Pacemaker or ICD? When Was Last Pacemaker Check QUESTION #4 FULL TEXT: You/Your Family Experience fever (hyperthermia) with Anesthesia Last Oral Intake Last Oral intake: Last Oral Intake NPO since Meds taken in AM with sips of water? Meds patient instructed to take am of surgery PONV PONV - touch up edger: PONV - touch up edger Female No 03/09/24 15:32 HX of Motion Sickness No 03/09/24 15:32 HX of N/V After Surgery No 03/09/24 15:32 Non-Smoker No 03/09/24 15:32 Duration of Surgery greater No 03/09/24 15:32 than 60 minutes Number of Risk Factors PONV Score Height & Weight Height & Weight: Anesthesia: Height & Weight Height 5 ft 10 in 08/10/23 06:43 Respiratory Assessment Respiratory Assessment - touch up edger: Respiratory Tract Infection Hx - touch up edger Hx Respiratory Tract Infection No 03/09/24 15:32 STOP Sleep Apnea STOP Sleep Apnea - touch up edger: STOP Sleep Apnea - touch up edger Hx Hypertension No 03/09/24 15:32 Hx Sleep Apnea No 03/09/24 15:32 CPAP BIPAP Do you snore loudly (louder No 03/09/24 15:32 than talking or can be heard Do you often feel tired/ No 03/09/24 15:32 fatigued/ sleepy during daytime? Has anyone observed you stop No 03/09/24 15:32 breathing during sleep? STOP Results Negative 03/09/24 15:32 QUESTION #5 FULL TEXT : Do you snore loudly (louder than talking or can be heard through closed doors)? 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 Specify any problems Hx of Preganancy in last 3 N/A 03/09/24 15:32 Months Nurse Filling Out Transfusion [id number] 03/09/24 15:32 & Questions: Date: 03/09/24 03/09/24 15:32 Time: 15:35 03/09/24 15:32 Patient unable to answer at this time (ie. confused, unrespo /Reproduction History /Reproductive History - touch up edger: /Reproductive Hx- touch up edger Hx Now Gestational Age (in weeks): EDC: Hx Hx Para Hx Section SAB PFSH Medical History Cardiology follow-up encounter Osteoarthritis Nephrolithiasis Nausea Anxiety Long COVID Chronic cough Vertigo Alcohol use History of steroid therapy Arthritis Anemia Back pain Injury of back Injury of head and neck Smoker Right clavicle fracture Home Medications ?Medication ?Instructions ?Recorded ?Last Taken ?Type glucosamine 375 rx-zxdcjfypi-bye 1 tab PO DAILY 08/09/23 08/09/23 History no1 500 mg-C 15 mg-iva 0.5 mg tablet (Xlfwcajmaxt-Eytuhsqiweb-FJX Complex) diazepam 5 mg tablet 5 mg PO BID PRN alcohol withdrawal 02/02/24 Unknown History triamcinolone acetonide 55 mcg 2 spray intranasal QDAY 02/02/24 Unknown History nasal spray aerosol Allergy/AdvReac Type Severity Reaction Status Date / Time No Known Allergies Allergy Verified 03/09/24 15:29 Surgical History Hx of rhinoplasty Social History household members: none Smoking Status: Current every day smoker tobacco type: cigarettes alcohol intake: current details: 1-2 times a month substance use type: does not use caffeine: Yes Type: carbonated beverages and coffee Review of Systems (Anesthesia) ROS Narrative System reviewed and no additional complaints, except as documented.
--- NOTE | 2024-03-15 14:00 | COLBX_PTH ---
PATIENT: AMARA GOMEZ LOC: EN U#:[id number] AGE/SX: 44/M ROOM: RE03/15/[address]: Dr. Samuel Burden DO : 1980 BED: DIS: 03/15/2024 SPEC #: [id number] RECD: 03/17/24 09:04 STATUS: JORDY CYRUS #: [id number] SIMBA: 03/15/24 14:[address]: Samuel Burden DEPT: SURGICAL PATHOLOGY RECD BY: Rossana Solano ENTERED: 03/17/24 09:50 SP TYPE: COLON BX OTHR DR: Dr. Henrique Mark MD Tissues: A - Ileum, NOS B - COLON BIOPSY C - Transverse colon Procedures: Surgery Specimen Level IV HEADER OPERATION: Colonoscopy with biopsy and cold snare polypectomy PRE-OP DIAGNOSIS: Irritable bowel syndrome with diarrhea TISSUE SUBMITTED: A- Terminal ileum biopsy, B- Random colon biopsy, C- Transverse colon polyp cold snare MICROSCOPIC DIAGNOSIS A. Terminal ileum, biopsy: No pathologic change. B. Colon, random biopsy: No pathologic change. C. Transverse colon polyp, biopsy: Fragments of tubular adenoma. AM. 03/20/2024 MICROSCOPIC DESCRIPTION Slides are reviewed. GROSS DESCRIPTION A. Received in fixative is one container labeled with the patient's name and designated Terminal ileum biopsy. The specimen consists of multiple irregular fragments of light mosher soft tissue that in aggregate measure 1.2 x 0.5 x 0.1 cm. The specimen is totally submitted in one cassette. B. Received in fixative is one container labeled with the patient's name and designated Random colon biopsy. The specimen consists of multiple irregular fragments of light mosher soft tissue that in aggregate measure 2.0 x 1.0 x 0.1 cm. The specimen is totally submitted in one cassette. C. Received in fixative is one container labeled with the patient's name and designated Transverse colon polyp. The specimen consists of multiple irregular fragments of light mosher soft tissue that in aggregate measure 1.2 x 0.5 x 0.1 cm. The specimen is totally submitted in one cassette. AM. 03/17/2024 TC:5 CPT:34205w1
--- NOTE | 2024-03-15 14:12 | HP.PCM_ITS ---
History and Physical Date of Admission: 03/15/24 HPI Chief Complaint: Diarrhea Details: AMARA GOMEZ, is a 43 M who presents to the office today for establishment with [facility] for complaints of diarrhea 3 to 4 times every morning for the last year. He reports abdominal bloating and stomach fullness that will last for hours. He denies difficulty chewing and swallowing, nausea, vomiting, heartburn, reflux, cramping, constipation, hematochezia and melena. He states the stools are always liquid light brown/mosher colored , without mucus. He does have a sense of urgency following a cup of coffee and the BMs are incomplete. He denies straining, fever, and chills. He denies change in water source but reports a significant increase in stress levels for the last year. He states that he consumes maybe 2 small meals a day and feels like he sat at an all you can eat buffet after each. ROS Const Constitutional: No chills, fatigue, fever(s) or weight change Eyes Eyes: No change in vision ENT ENT: Positive for abnormal hearing; No difficulty swallowing Resp Respiratory: No cough Cardio Cardiology: No chest pain at rest, chest pain with exertion or leg pain with exertion Gastro GI: Positive for change in bowel habits and diarrhea; No abdominal pain, belching, bloating, change in stool character, coffee ground emesis, constipation, cramping, heartburn, difficulty swallowing, feeling full early, excessive flatus, incontinent of stools, Vomiting blood/hematemesis, Blood in stool, loose stools, Black,tarry stools, nausea/dyspepsia, pain with swallowing, vomiting or other Genitourinary Male: No difficulty urinating Musc Musculoskeletal: Positive for joint pain, back pain, numbness, tingling and Arthritis; No leg pain with exertion Skin Skin: No yellowing of the eye or itchy eyes Neuro Neurology: Positive for abnormal hearing, numbness and tingling Psych Psychiatric: Positive for anxiety and No depression Endo Endocrine: No cold intolerance, fatigue, heat intolerance or weight change Aller/Imm Allergy/Immunologic: No food intolerance or itchy eyes Tomas/Lymp Hematologic/Lymphatic: No easy bleeding or easy bruising Exam Const General: cooperative, healthy appearing, comfortable and no acute distress Nutritional Appearance: average body habitus Orientation: alert HENMO Head: normal to inspection Ears: hearing grossly normal bilaterally Nose: external nose normal Face and sinus: normal facial exam and face symmetric Teeth and gingiva: dentition normal Eyes General: appearance normal, both eyes and all related structures Sclera: sclerae normal Neck Neck: normal visual inspection and full ROM Neck mass: No Chest Chest palpation & inspection: normal inspection of the chest Resp Effort & Inspection: normal respiratory effort, able to speak in complete sentences and symmetric chest movement GI Inspection: normal to inspection Auscultation: normal bowel sounds Palpation: soft and no hepatosplenomegaly Skin General: no rashes or lesions noted Neuro General: patient alert, patient awake, patient oriented x3 and moves all extremities Cognition: normal cognition Speech: speech normal Gait: normal gait Extrem General: full ROM Psych Appearance: well kempt Mental Status: mental status grossly normal Mood: congruent mood Affect: normal affect Speech and Movement: speech and movement normal Attitude: cooperative Thought Process: normal Assessment and Plan Assessment and Plan (1) Irritable bowel syndrome with diarrhea: Status: Acute Plan: AMARA GOMEZ, is a 43 M who presents to the office today for establishment with [facility] for complaints of diarrhea 3 to 4 times every morning for the last year. Differential diagnoses include: EPI, delayed gastric mobility, IBS-D, IBD, food allergies, hyperthyroid, DM. Discussed plan with him. * blood for IBS/D, inflammatory, thyroid, DM markers * stool for enteric, enzyme, inflammatory markers * GET for early satiety * psyllium husk 1tsp PO QAM * call with results * office follow-up 3 months Orders: Orders Allergen, Food Profile 14 Today K58.0 - Irritable bowel syndrome with diarrhea CRP Today K58.0 - Irritable bowel syndrome with diarrhea Immunoglobulins G/A/M/E Today K58.0 - Irritable bowel syndrome with diarrhea DUSTY Comprehensive Panel Today K58.0 - Irritable bowel syndrome with diarrhea ENTERIC PATHOGEN PANEL STOOL Today K58.0 - Irritable bowel syndrome with diarrhea LDH Today K58.0 - Irritable bowel syndrome with diarrhea ANCA Today K58.0 - Irritable bowel syndrome with diarrhea Erythrocyte Sed Rate Today K58.0 - Irritable bowel syndrome with diarrhea Ova and Parasites 8623 Today K58.0 - Irritable bowel syndrome with diarrhea Calprotectin, Stool Today K58.0 - Irritable bowel syndrome with diarrhea Free T3 Today K58.0 - Irritable bowel syndrome with diarrhea Pancreatic Elastase, Fecal Today K58.0 - Irritable bowel syndrome with diarrhea CBC W/Diff, Automated Today K58.0 - Irritable bowel syndrome with diarrhea Giardia Lamblia, Stool EIA Today K58.0 - Irritable bowel syndrome with diarrhea Stool Lactoferrin/WBC Today K58.0 - Irritable bowel syndrome with diarrhea CDIFF (PCR) Today K58.0 - Irritable bowel syndrome with diarrhea IBD Expanded Profile Today K58.0 - Irritable bowel syndrome with diarrhea T4 Free Direct Today K58.0 - Irritable bowel syndrome with diarrhea Celiac Disease Profile Today K58.0 - Irritable bowel syndrome with diarrhea ALICIA + Protein Elect, Serum Today K58.0 - Irritable bowel syndrome with diarrhea Thyroid Stim Hormone (TSH) Today K58.0 - Irritable bowel syndrome with diarrhea Comprehensive Metabolic Profil Today K58.0 - Irritable bowel syndrome with diarrhea Ferritin Today K58.0 - Irritable bowel syndrome with diarrhea Hemoglobin A1c Today K58.0 - Irritable bowel syndrome with diarrhea Vitamin B1, Thiamine Today K58.0 - Irritable bowel syndrome with diarrhea Vitamin B12 Today K58.0 - Irritable bowel syndrome with diarrhea PSA,Total - Annual Screen Today K58.0 - Irritable bowel syndrome with diarrhea Folates, (Folic Acid) Today K58.0 - Irritable bowel syndrome with diarrhea Gastric Emptying Study Today K58.0 - Irritable bowel syndrome with diarrhea I have examined the patient and the H&P has been reviewed. There are no clinical changes since date of exam.
--- NOTE | 2024-03-15 15:21 | OP.CCLET_ITS ---
03/15/2024 Henrique Mark Re : Colonoscopy procedure for Jimmy Fraga Dear Jas This procedure was performed on Friday, March 15, 2024. My impressions and recommendations are as follows: Impressions : - One 8 mm polyp in the transverse colon, removed with a cold snare. Resected and retrieved. - Congested mucosa in the entire examined colon. Biopsied. - The examined portion of the ileum was normal. Biopsied. Recommendations : - Discharge patient to home. - Resume previous diet. - Continue present medications. - Await pathology results. - Repeat colonoscopy in 5 years for surveillance. My findings are described in the full procedure note, which is enclosed. If I can be of further assistance, please feel free to contact me at . Sincerely, Samuel Burden, 03/15/2024 3:21:06 PM This report has been signed electronically.
--- NOTE | 2024-03-15 15:21 | OP.COLON_ITS ---
Patient Name: Jimmy Fraga Procedure Date: 03/15/2024 2:36 PM Date of : 1980 Age: 44 Procedure: Colonoscopy Indications: Chronic diarrhea Providers: DO Brayden Alexandra MD: Henrique Mark Medicines: Monitored Anesthesia Care Patient Profile: This is a 44 year old male. Refer to note in patient chart for documentation of history and physical. Last Colonoscopy: none. The patient's first colonoscopy is today. Complications: No immediate complications. Procedure: Pre-Anesthesia Assessment: - Prior to the procedure, a History and Physical was performed, and patient medications and allergies were reviewed. The patient is competent. The risks and benefits of the procedure and the sedation options and risks were discussed with the patient. All questions were answered and informed consent was obtained. Patient identification and proposed procedure were verified by the physician in the pre-procedure area. Mental Status Examination: alert and oriented. Respiratory Examination: clear to auscultation. CV Examination: normal. ASA Grade Assessment: II - A patient with mild systemic disease. After reviewing the risks and benefits, the patient was deemed in satisfactory condition to undergo the procedure. The anesthesia plan was to use monitored anesthesia care (MAC). Immediately prior to administration of medications, the patient was re-assessed for adequacy to receive sedatives. The heart rate, respiratory rate, oxygen saturations, blood pressure, adequacy of pulmonary ventilation, and response to care were monitored throughout the procedure. The physical status of the patient was re-assessed after the procedure. After I obtained informed consent, the scope was passed under direct vision. Throughout the procedure, the patient's blood pressure, pulse, and oxygen saturations were monitored continuously. The Colonoscope was introduced through the anus and advanced to the terminal ileum. The colonoscopy was performed without difficulty. The patient tolerated the procedure well. The quality of the bowel preparation was adequate. The terminal ileum, ileocecal valve, appendiceal orifice, and rectum were photographed. Scope In: 2:50:46 PM Scope Withdrawal Time 0 hours 17 minutes 15 seconds Scope Out: 3:14:53 PM Total Procedure Duration Time 0 hours 24 minutes 7 seconds Findings: The perianal and digital rectal examinations were normal. An 8 mm polyp was found in the transverse colon. The polyp was sessile. The polyp was removed with a cold snare. Resection and retrieval were complete. Verification of patient identification for the specimen was done. Estimated blood loss was minimal. An area of mildly congested mucosa was found in the entire colon. Biopsies were taken with a cold forceps for histology. Verification of patient identification for the specimen was done. Estimated blood loss was minimal. The terminal ileum appeared normal. Biopsies were taken with a cold forceps for histology. Verification of patient identification for the specimen was done. Estimated blood loss was minimal. Impression: - One 8 mm polyp in the transverse colon, removed with a cold snare. Resected and retrieved. - Congested mucosa in the entire examined colon. Biopsied. - The examined portion of the ileum was normal. Biopsied. Recommendation: - Discharge patient to home. - Resume previous diet. - Continue present medications. - Await pathology results. - Repeat colonoscopy in 5 years for surveillance. Procedure Code(s): --- Professional --- 21692, Colonoscopy, flexible; with removal of tumor(s), polyp(s), or other lesion(s) by snare technique 48544, 59, Colonoscopy, flexible; with biopsy, single or multiple CPT copyright 2021 [employer]. All rights reserved. The codes documented in this report are preliminary and upon pulpwood dealer review may be revised to meet current compliance requirements. Samuel Burden DO 03/15/2024 3:21:06 PM This report has been signed electronically. Number of Addenda: 0 Note Initiated On: 03/15/2024 2:36 PM
--- NOTE | 2024-03-15 15:25 | PCM.POST.ANE ---
Anesthesia: Postop Eval I Current Vital Signs Temperature: 97.7 F Pulse Rate: 67 Blood Pressure: 100/65 Respiratory Rate: 16 Pulse Ox: 97 Oxygen Delivery Method: Room Air Assessment Airway patent: Yes Spontaneous unlabored respirations: Yes Mental status: Asleep nausea: No Vomiting: No Anesthesia Complication: No Fluid Hydration Crystalloid volume administer (ml): 50 Total IV fluid infused: 50 Progress Note Anesthesia document: Postop Eval 1 completed: Yes
--- NOTE | 2024-03-15 15:41 | PCM.POSTANE2 ---
Anesthesia Postop Eval I Sum Postop Eval Completion status Anesthesia document: Postop Eval 1 completed: Yes Anesthesia Postop Eval I Summary Anesthesia Postop Eval I Summary: Anesthesia Postop Eval I: Assessment Summary Airway patent Yes 03/15/24 15:26 [email or web address] Spontaneous unlabored Yes 03/15/24 15:26 [email or web address] respirations Mental status Asleep 03/15/24 15:26 [email or web address] nausea No 03/15/24 15:26 [email or web address] Vomiting No 03/15/24 15:26 [email or web address] Anesthesia Postop Eval I: Fluid Summary Crystalloid volume administer 50 03/15/24 15:26 [email or web address] (ml) Colloids volume administered ( ml) Blood Product volume administered (ml) Total IV fluid infused 50 03/15/24 15:26 [email or web address] Anesthesia Postop Eval I: Summary Notes Anesthesia Complication No 03/15/24 15:26 [email or web address] Anesthesia Complication Comment: Post-operative progress note Anesthesia: Postop Eval II Evaluation Mental status: Awake Pain Level: 0 nausea: No Vomiting: No
== END 2024-03-15 15:54 | disposition home or self-care (01) ==
LOC: EN 13:02 → AC 13:02
PROVIDERS: PCP Family Medicine; Referring Provider Family Medicine; Visit Provider Internal Medicine Gastroenterology
PROC: 0DJD8ZZ Inspection of Lower Intestinal Tract, Via Natural or Artificial Opening Endoscopic (ICD-10-PCS; CPT 45378; principal; 2024-03-15 13:55)
DX: K58.0 Irritable bowel syndrome with diarrhea (principal); D12.3 Benign neoplasm of transverse colon; F41.0 Panic disorder [episodic paroxysmal anxiety]; F17.210 Nicotine dependence, cigarettes, uncomplicated; Z79.899 Other long term (current) drug therapy; Z86.16 Personal history of COVID-19
CPT/HCPCS: 45385; 45380; 88305; A4216; J2405

== ENCOUNTER → 2024-09-26 | Outpatient (CLI) | payer MEDICAID, SELFPAY ==
[2024-09-28 03:07] LABS: Calprotectin, Stool 19 ug/g (0-120)
[2024-09-28 07:07] LABS: Giardia Lamblia, Stool EIA Negative (Negative); Pancreatic Elastase, Fecal 190 (>200)
== END | disposition home or self-care (01) ==
LOC: LABSPEC 11:04
PROVIDERS: PCP Family Medicine
DX: K91.1 Postgastric surgery syndromes (principal); K58.0 Irritable bowel syndrome with diarrhea
CPT/HCPCS: 82653; 83993; 87329; 87506